=== PATIENT | male | born 1965 | race Caucasian/White ===

== ENCOUNTER 2023-07-29 01:28 | Inpatient (IN) | payer MEDICAID ==
[2023-07-29] VITALS (8 sets, daily range): BP systolic 100–107; BP diastolic 68–78; PULSE 102–117; RESP 14–26; TEMP 97.6–97.8; O2SAT 93–100
[~2023-07-29] VITALS: Ht 170.2 cm; Wt 113.6 kg
[2023-07-29] MEDS ORDERED: ipratropium/albuterol 3ml nebule NEB ONE (01:55)
[2023-07-29] MEDS ORDERED: ALBU18HF2 INH (03:11)
[2023-07-29 04:52] LABS: HEMOGLOBIN 14.3 g/dl (14.0-17.9)
[2023-07-29 04:53] LABS: BASOPHILS % (AUTO) 0.2 % (0-1); EOSINOPHILS # (AUTO) 0.3 X10'3 (0-0.9); EOSINOPHILS % (AUTO) 3.2 % (0-6); HEMATOCRIT 43.8 % (42.0-52.0); LYMPHOCYTES % (AUTO) 24.9 % (21-51); MEAN CORPUSCULAR HEMOGLOBIN 29.6 PG (27.0-31.0); MEAN CORPUSCULAR HGB CONC 32.6 g/dL (33.0-36.5); MEAN CORPUSCULAR VOLUME 90.8 FL (78-98); MEAN PLATELET VOLUME 8.5 FL (7.4-10.4); MONOCYTES # (AUTO) 0.8 X10'3 (0-0.9); MONOCYTES % (AUTO) 9.3 % (2-12); NEUTROPHILS # (AUTO) 5.1 X10'3 (1.8-7.7); NEUTROPHILS % (AUTO) 62.4 % (42-75); PLATELET COUNT 445 X10'3 (140-440); RED BLOOD COUNT 4.82 X10'6 (4.70-6.10); RED CELL DISTRIBUTION WIDTH 16.9 % (11.5-14.5); WHITE BLOOD COUNT 8.2 X10'3 (4.5-11.0)
[2023-07-29 05:15] LABS: ALANINE AMINOTRANSFERASE 46 U/L (12-78); ALBUMIN 3.2 G/DL (3.4-5.0); ALBUMIN/GLOBULIN RATIO 0.8 (1.1-1.5); ALKALINE PHOSPHATASE 147 IU/L (46-116); ANION GAP 9 (8-16); ASPARTATE AMINO TRANSFERASE 34 U/L (10-37); BILIRUBIN,TOTAL 0.8 MG/DL (0.1-1.0); BLOOD UREA NITROGEN 12 MG/DL (7-18); BUN/CREATININE RATIO 12.8 (10.0-20.0); CALCIUM 8.7 MG/DL (8.5-10.1); CHLORIDE 100 MMOL/L (99-107); CREATININE 0.94 MG/DL (0.60-1.10); ETHANOL < 10 MG/DL (<10); GLUCOSE 135 MG/DL (70-104); PRO BRAIN NATRIURETIC PEPTIDE 12453 PG/ML (0-125); SODIUM 138 MMOL/L (135-145); TOTAL CARBON DIOXIDE 29.5 MMOL/L (24-32); TOTAL PROTEIN 7.1 G/DL (6.4-8.2); eCRCL 83 ML/MIN; eGFR 83 ML/MIN
[2023-07-29 05:23] LABS: POTASSIUM 2.9 MMOL/L (3.5-5.1)
[2023-07-29] MEDS ORDERED: furosemide 10 MG/1 ML 10ml inj IV ONE (05:35)
[2023-07-29] MEDS ORDERED: iohexol 350MG/ML 100ml bottle IV ONE (06:04)
[2023-07-29] MEDS ORDERED: acetaminophen 325mg tablet PO PRN ×2 (06:10)
[2023-07-29] MEDS ORDERED: magnesium 4gm in 100ml NS 100 ML IV PRN (06:10)
[2023-07-29] MEDS ORDERED: magnesium Cl slow-release 64mg tablet PO PRN (06:10)
[2023-07-29] MEDS ORDERED: ondansetron/PF 4mg/2ml inj IV PRN (06:10)
[2023-07-29] MEDS ORDERED: potassium Cl 20 mEq SR tablet PO PRN ×2 (06:10)
[2023-07-29] MEDS ORDERED: magnesium 2GM in 50ml NS 50 ML IV PRN (06:10)
[2023-07-29] MEDS ORDERED: morphine 2 MG/ML inj. syringe IV PRN (06:10)
[2023-07-29] MEDS: potassium Cl 40MEQ/1/2NS 520ml 520 ML IV PRN ×2 (07:07→11:35)
[2023-07-29] MEDS: furosemide 40mg/4ml inj IV SCH ×2 (08:00→20:00)
[2023-07-29] MEDS: K and/or MAG REPLACEMENT MC SCH ×2 (08:18→20:00)
[2023-07-29] MEDS: potassium Cl 20 mEq SR tablet PO SCH ×2 (08:43→20:00)
[2023-07-29] MEDS: carVEDilol 3.125mg tablet PO SCH ×2 (08:43→20:00)
[2023-07-29] MEDS: lisinopril 10 MG tablet PO SCH (08:43)
[2023-07-29] MEDS: spironolactone 25 MG tablet PO SCH (09:18)
[2023-07-29] MEDS ORDERED: ipratropium/albuterol 3ml nebule NEB STA (13:10)
[2023-07-29] MEDS ORDERED: RIVA10TA PO (18:17)
[2023-07-29] MEDS ORDERED: HYDR100T27 PO (18:19)
[2023-07-29] MEDS ORDERED: SPIR25TA5 PO (18:19)
[2023-07-29] MEDS ORDERED: CARV25TA2 PO (18:21)
[2023-07-29] MEDS ORDERED: EMPA10TA PO (18:30)
[2023-07-29] MEDS ORDERED: GABA-530 PO (18:30)
[2023-07-29] MEDS ORDERED: SACU1TAB PO (18:31)
[2023-07-29] MEDS ORDERED: temazepam 15mg capsule PO PRN (21:00)
[2023-07-29] MEDS: enoxaparin 40mg/0.4ml syringe SQ SCH (23:03)
[2023-07-30] VITALS (9 sets, daily range): BP systolic 98–122; BP diastolic 51–83; PULSE 97–112; RESP 12–21; TEMP 97.4–99.2; O2SAT 90–98
[2023-07-30 07:39] LABS: BASOPHILS % (AUTO) 0.6 % (0-1); EOSINOPHILS # (AUTO) 0.3 X10'3 (0-0.9); EOSINOPHILS % (AUTO) 5.2 % (0-6); HEMATOCRIT 41.8 % (42.0-52.0); HEMOGLOBIN 13.7 g/dl (14.0-17.9); LYMPHOCYTES # (AUTO) 1.9 X10'3 (1.1-4.8); LYMPHOCYTES % (AUTO) 27.9 % (21-51); MEAN CORPUSCULAR HEMOGLOBIN 29.6 PG (27.0-31.0); MEAN CORPUSCULAR HGB CONC 32.7 g/dL (33.0-36.5); MEAN CORPUSCULAR VOLUME 90.4 FL (78-98); MEAN PLATELET VOLUME 9.3 FL (7.4-10.4); MONOCYTES # (AUTO) 0.6 X10'3 (0-0.9); MONOCYTES % (AUTO) 8.3 % (2-12); NEUTROPHILS # (AUTO) 3.9 X10'3 (1.8-7.7); PLATELET COUNT 381 X10'3 (140-440); RED BLOOD COUNT 4.63 X10'6 (4.70-6.10); RED CELL DISTRIBUTION WIDTH 16.3 % (11.5-14.5); WHITE BLOOD COUNT 6.7 X10'3 (4.5-11.0)
[2023-07-30 08:10] LABS: ALANINE AMINOTRANSFERASE 47 U/L (12-78); ALBUMIN 3.2 G/DL (3.4-5.0); ALBUMIN/GLOBULIN RATIO 0.9 (1.1-1.5); ALKALINE PHOSPHATASE 137 IU/L (46-116); ANION GAP 5 (8-16); ASPARTATE AMINO TRANSFERASE 29 U/L (10-37); BILIRUBIN,TOTAL 0.9 MG/DL (0.1-1.0); BLOOD UREA NITROGEN 10 MG/DL (7-18); BUN/CREATININE RATIO 12.7 (10.0-20.0); CALCIUM 8.8 MG/DL (8.5-10.1); CHLORIDE 102 MMOL/L (99-107); CREATININE 0.79 MG/DL (0.60-1.10); GLUCOSE 120 MG/DL (70-104); POTASSIUM 3.7 MMOL/L (3.5-5.1); SODIUM 135 MMOL/L (135-145); TOTAL CARBON DIOXIDE 28.4 MMOL/L (24-32); TOTAL PROTEIN 6.9 G/DL (6.4-8.2); eCRCL 99 ML/MIN; eGFR > 90 ML/MIN
[2023-07-30] MEDS: K and/or MAG REPLACEMENT MC SCH ×2 (08:21→19:58)
[2023-07-30] MEDS: furosemide 40mg/4ml inj IV SCH ×2 (08:29→19:55)
[2023-07-30] MEDS: carVEDilol 3.125mg tablet PO SCH ×2 (08:29→19:54)
[2023-07-30] MEDS: lisinopril 10 MG tablet PO SCH (08:29)
[2023-07-30] MEDS: potassium Cl 20 mEq SR tablet PO SCH ×2 (08:30→19:54)
[2023-07-30] MEDS: spironolactone 25 MG tablet PO SCH (08:39)
[2023-07-30] MEDS: HYDROcodone/acetaminophen 5mg/325mg tablet PO PRN ×2 (13:32→19:54)
[2023-07-30] MEDS: nicotine 7mg patch - 24hr TD SCH (17:05)
[2023-07-30] MEDS: enoxaparin 40mg/0.4ml syringe SQ SCH (19:57)
[2023-07-31] VITALS (9 sets, daily range): BP systolic 105–119; BP diastolic 62–83; PULSE 63–103; RESP 15–24; TEMP 97.6–99.2; O2SAT 91–98
[2023-07-31 07:08] LABS: ALANINE AMINOTRANSFERASE 41 U/L (12-78); ALBUMIN 3.2 G/DL (3.4-5.0); ALBUMIN/GLOBULIN RATIO 0.9 (1.1-1.5); ALKALINE PHOSPHATASE 133 IU/L (46-116); ANION GAP 7 (8-16); ASPARTATE AMINO TRANSFERASE 28 U/L (10-37); BILIRUBIN,TOTAL 0.8 MG/DL (0.1-1.0); BLOOD UREA NITROGEN 13 MG/DL (7-18); BUN/CREATININE RATIO 16.7 (10.0-20.0); CALCIUM 8.9 MG/DL (8.5-10.1); CHLORIDE 100 MMOL/L (99-107); CREATININE 0.78 MG/DL (0.60-1.10); GLUCOSE 98 MG/DL (70-104); POTASSIUM 3.7 MMOL/L (3.5-5.1); SODIUM 136 MMOL/L (135-145); TOTAL CARBON DIOXIDE 29.2 MMOL/L (24-32); TOTAL PROTEIN 6.9 G/DL (6.4-8.2); eCRCL 100 ML/MIN; eGFR > 90 ML/MIN
[2023-07-31 07:25] LABS: BASOPHILS # (AUTO) 0.1 X10'3 (0-0.2); BASOPHILS % (AUTO) 1.1 % (0-1); EOSINOPHILS # (AUTO) 0.4 X10'3 (0-0.9); EOSINOPHILS % (AUTO) 5.7 % (0-6); HEMATOCRIT 40.6 % (42.0-52.0); HEMOGLOBIN 13.1 g/dl (14.0-17.9); LYMPHOCYTES # (AUTO) 1.8 X10'3 (1.1-4.8); MEAN CORPUSCULAR HEMOGLOBIN 29.2 PG (27.0-31.0); MEAN CORPUSCULAR HGB CONC 32.4 g/dL (33.0-36.5); MEAN CORPUSCULAR VOLUME 90.1 FL (78-98); MEAN PLATELET VOLUME 9.2 FL (7.4-10.4); MONOCYTES # (AUTO) 0.7 X10'3 (0-0.9); MONOCYTES % (AUTO) 9.8 % (2-12); NEUTROPHILS # (AUTO) 4.2 X10'3 (1.8-7.7); NEUTROPHILS % (AUTO) 58.4 % (42-75); PLATELET COUNT 422 X10'3 (140-440); RED CELL DISTRIBUTION WIDTH 16.6 % (11.5-14.5); WHITE BLOOD COUNT 7.2 X10'3 (4.5-11.0)
[2023-07-31] MEDS: K and/or MAG REPLACEMENT MC SCH ×2 (08:00→20:00)
[2023-07-31] MEDS: furosemide 40mg/4ml inj IV SCH ×2 (08:20→19:59)
[2023-07-31] MEDS: HYDROcodone/acetaminophen 5mg/325mg tablet PO PRN ×3 (08:20→20:51)
[2023-07-31] MEDS: potassium Cl 20 mEq SR tablet PO SCH ×2 (08:21→19:56)
[2023-07-31] MEDS: lisinopril 10 MG tablet PO SCH (08:23)
[2023-07-31] MEDS: nicotine 7mg patch - 24hr TD SCH (08:24)
[2023-07-31] MEDS: carVEDilol 3.125mg tablet PO SCH ×2 (08:24→19:57)
[2023-07-31] MEDS: spironolactone 25 MG tablet PO SCH (09:23)
[2023-07-31] MEDS: enoxaparin 40mg/0.4ml syringe SQ SCH (19:58)
[2023-08-01] VITALS (7 sets, daily range): BP systolic 91–127; BP diastolic 54–84; PULSE 74–96; RESP 12–19; TEMP 97.4–98.2; O2SAT 92–98
[2023-08-01 06:27] LABS: BASOPHILS % (AUTO) 0.3 % (0-1); EOSINOPHILS # (AUTO) 0.3 X10'3 (0-0.9); EOSINOPHILS % (AUTO) 4.7 % (0-6); HEMATOCRIT 42.5 % (42.0-52.0); HEMOGLOBIN 13.7 g/dl (14.0-17.9); LYMPHOCYTES # (AUTO) 1.7 X10'3 (1.1-4.8); LYMPHOCYTES % (AUTO) 26.3 % (21-51); MEAN CORPUSCULAR HEMOGLOBIN 29.3 PG (27.0-31.0); MEAN CORPUSCULAR HGB CONC 32.2 g/dL (33.0-36.5); MEAN PLATELET VOLUME 9.2 FL (7.4-10.4); MONOCYTES # (AUTO) 0.8 X10'3 (0-0.9); MONOCYTES % (AUTO) 11.5 % (2-12); NEUTROPHILS # (AUTO) 3.8 X10'3 (1.8-7.7); NEUTROPHILS % (AUTO) 57.2 % (42-75); PLATELET COUNT 372 X10'3 (140-440); RED BLOOD COUNT 4.67 X10'6 (4.70-6.10); RED CELL DISTRIBUTION WIDTH 16.5 % (11.5-14.5); WHITE BLOOD COUNT 6.6 X10'3 (4.5-11.0)
[2023-08-01] MEDS ORDERED: HYDRALAZINE HCL 10 MG PO SCH (06:55)
[2023-08-01 07:07] LABS: ALANINE AMINOTRANSFERASE 39 U/L (12-78); ALBUMIN/GLOBULIN RATIO 0.8 (1.1-1.5); ALKALINE PHOSPHATASE 136 IU/L (46-116); ANION GAP 6 (8-16); ASPARTATE AMINO TRANSFERASE 26 U/L (10-37); BILIRUBIN,TOTAL 0.5 MG/DL (0.1-1.0); BLOOD UREA NITROGEN 18 MG/DL (7-18); CALCIUM 8.9 MG/DL (8.5-10.1); CHLORIDE 100 MMOL/L (99-107); GLUCOSE 98 MG/DL (70-104); POTASSIUM 4.2 MMOL/L (3.5-5.1); SODIUM 137 MMOL/L (135-145); TOTAL CARBON DIOXIDE 30.7 MMOL/L (24-32); TOTAL PROTEIN 6.6 G/DL (6.4-8.2); eCRCL 87 ML/MIN; eGFR 88 ML/MIN
[2023-08-01] MEDS ORDERED: non-formulary drug (Carvedilol 1 TAB) PO SCH (08:00)
[2023-08-01] MEDS: K and/or MAG REPLACEMENT MC SCH ×2 (08:00→20:00)
[2023-08-01] MEDS ORDERED: spironolactone 25 MG tablet PO SCH (08:00)
[2023-08-01] MEDS: furosemide 40mg/4ml inj IV SCH ×2 (09:11→20:49)
[2023-08-01] MEDS: lisinopril 10 MG tablet PO SCH (09:12)
[2023-08-01] MEDS: carVEDilol 3.125mg tablet PO SCH ×2 (09:12→20:49)
[2023-08-01] MEDS: spironolactone 25 MG tablet PO SCH (09:13)
[2023-08-01] MEDS: nicotine 7mg patch - 24hr TD SCH (09:13)
[2023-08-01] MEDS: sacubitril/valsartan 24mg-26mg tablet PO SCH ×2 (09:28→20:49)
[2023-08-01] MEDS ORDERED: COR3.125T PO (10:37)
[2023-08-01] MEDS ORDERED: LISI10TA27 PO (10:37)
[2023-08-01] MEDS ORDERED: SPIR25TA PO (10:37)
[2023-08-01] MEDS ORDERED: FURO40TA4 PO (10:37)
[2023-08-01] MEDS ORDERED: POTA-207 PO (10:38)
[2023-08-01] MEDS: potassium Cl 20 mEq SR tablet PO SCH ×2 (12:34→20:49)
[2023-08-01] MEDS ORDERED: rivaroxaban 20mg tablet PO SCH (18:00)
[2023-08-01] MEDS: HYDROcodone/acetaminophen 5mg/325mg tablet PO PRN (20:48)
[2023-08-02 02:00] VITALS: BP 93/57; PULSE 99; RESP 18; TEMP 97.8; O2SAT 92
[2023-08-02] MEDS ORDERED: magnesium Cl slow-release 64mg tablet PO ONE (04:50)
[2023-08-02 06:00] VITALS: BP 113/75; PULSE 62; RESP 17; TEMP 97.6; O2SAT 98
[2023-08-02 07:24] LABS: BASOPHILS % (AUTO) 0.6 % (0-1); EOSINOPHILS # (AUTO) 0.4 X10'3 (0-0.9); EOSINOPHILS % (AUTO) 4.4 % (0-6); HEMATOCRIT 45.5 % (42.0-52.0); HEMOGLOBIN 14.9 g/dl (14.0-17.9); LYMPHOCYTES # (AUTO) 2.4 X10'3 (1.1-4.8); LYMPHOCYTES % (AUTO) 28.8 % (21-51); MEAN CORPUSCULAR HEMOGLOBIN 29.6 PG (27.0-31.0); MEAN CORPUSCULAR HGB CONC 32.8 g/dL (33.0-36.5); MEAN CORPUSCULAR VOLUME 90.3 FL (78-98); MEAN PLATELET VOLUME 8.8 FL (7.4-10.4); MONOCYTES # (AUTO) 0.8 X10'3 (0-0.9); NEUTROPHILS # (AUTO) 4.6 X10'3 (1.8-7.7); NEUTROPHILS % (AUTO) 56.2 % (42-75); PLATELET COUNT 401 X10'3 (140-440); RED BLOOD COUNT 5.04 X10'6 (4.70-6.10); RED CELL DISTRIBUTION WIDTH 16.9 % (11.5-14.5); WHITE BLOOD COUNT 8.2 X10'3 (4.5-11.0)
[2023-08-02 07:25] LABS: ALANINE AMINOTRANSFERASE 33 U/L (12-78); ALBUMIN 3.1 G/DL (3.4-5.0); ALBUMIN/GLOBULIN RATIO 0.8 (1.1-1.5); ALKALINE PHOSPHATASE 132 IU/L (46-116); ANION GAP 7 (8-16); ASPARTATE AMINO TRANSFERASE 30 U/L (10-37); BILIRUBIN,TOTAL 0.8 MG/DL (0.1-1.0); BLOOD UREA NITROGEN 16 MG/DL (7-18); BUN/CREATININE RATIO 20.5 (10.0-20.0); CALCIUM 9.2 MG/DL (8.5-10.1); CHLORIDE 98 MMOL/L (99-107); CREATININE 0.78 MG/DL (0.60-1.10); GLUCOSE 96 MG/DL (70-104); SODIUM 136 MMOL/L (135-145); TOTAL CARBON DIOXIDE 30.7 MMOL/L (24-32); TOTAL PROTEIN 7.1 G/DL (6.4-8.2); eCRCL 100 ML/MIN; eGFR > 90 ML/MIN
[2023-08-02 07:31] LABS: POTASSIUM 4.7 MMOL/L (3.5-5.1)
[2023-08-02 08:00] VITALS: RESP 16; O2SAT 99
[2023-08-02] MEDS: K and/or MAG REPLACEMENT MC SCH (08:00)
[2023-08-02] MEDS: furosemide 40mg/4ml inj IV SCH (08:16)
[2023-08-02] MEDS: potassium Cl 20 mEq SR tablet PO SCH (08:27)
[2023-08-02] MEDS: carVEDilol 3.125mg tablet PO SCH (08:27)
[2023-08-02] MEDS: sacubitril/valsartan 24mg-26mg tablet PO SCH (08:30)
[2023-08-02] MEDS: nicotine 7mg patch - 24hr TD SCH (08:30)
[2023-08-02] MEDS: spironolactone 25 MG tablet PO SCH (08:30)
[2023-08-02] MEDS: lisinopril 10 MG tablet PO SCH (08:30)
[2023-08-02 10:00] VITALS: BP_SYST 108; BP_SYST 96; BP_DIAS 56; BP_DIAS 75; PULSE 58; PULSE 75; RESP 16; RESP 17; TEMP 97.2; TEMP 97.8; O2SAT 96
[2023-08-02] MEDS: HYDROcodone/acetaminophen 5mg/325mg tablet PO PRN (11:18)
[2023-08-02 12:18] VITALS: RESP 17
== END 2023-08-02 16:05 | disposition home or self-care (01) | DRG 425 ==
LOC: ER 01:29 → ED HOLD 06:11 → EDBEDREQ 17:49 → PCU 3S 19:26
PROVIDERS: ADMIT Internal Medicine; ATTEND Internal Medicine
PROC: B32T1ZZ Computerized Tomography (CT Scan) of Left Pulmonary Artery using Low Osmolar Contrast (ICD-10-PCS; principal; 2023-07-29)
PROC: B3201ZZ Computerized Tomography (CT Scan) of Thoracic Aorta using Low Osmolar Contrast (ICD-10-PCS; 2023-07-29)
PROC: B32S1ZZ Computerized Tomography (CT Scan) of Right Pulmonary Artery using Low Osmolar Contrast (ICD-10-PCS; 2023-07-29)
DX: E87.6 Hypokalemia (principal); J96.00 Acute respiratory failure, unspecified whether with hypoxia or hypercapnia; I50.23 Acute on chronic systolic (congestive) heart failure; I11.0 Hypertensive heart disease with heart failure; F17.210 Nicotine dependence, cigarettes, uncomplicated; F41.9 Anxiety disorder, unspecified; Z79.899 Other long term (current) drug therapy; Z88.8 Allergy status to other drugs, medicaments and biological substances
CPT/HCPCS: 36415; 71045; 71275; 80053; 80320; 83735; 83880; 84145; 84484; 85025; 85379; 87081; 93005; 93306; 94640; 94760; 97161; 97530; 99285; A4615; G0378; J1650; J1940; J3480; J3490; Q9967